=== PATIENT | male | born 1995 | race Two or more races ===

== ENCOUNTER 2020-01-26 10:03 | Emergency (ER) | payer OTHER ==
[2020-01-26 10:15] VITALS: BP 155/78; PULSE 107; TEMP 98.4; BMI 29.8
[2020-01-26] MEDS ORDERED: KETOROLAC TROMETHAMINE 30 MG/1 ML VIAL IM ONE (10:31)
[2020-01-26] MEDS ORDERED: KETOROLAC TROMETHAMINE 30 MG/1 ML VIAL ONE (10:36)
[2020-01-26] MEDS ORDERED: diazePAM 2 MG TABLET PO ONE (10:38)
[2020-01-26] MEDS ORDERED: diazePAM 2 MG TABLET ONE (10:39)
[2020-01-26 11:18] LABS: URINE APPEARANCE CLEAR; URINE BILIRUBIN NEGATIVE (NEGATIVE); URINE COLOR YELLOW; URINE GLUCOSE (UA) NEGATIVE (NEGATIVE); URINE KETONE TRACE (NEGATIVE); URINE LEUK ESTERASE NEGATIVE (NEGATIVE); URINE NITRITE NEGATIVE (NEGATIVE); URINE PROTEIN TRACE (NEGATIVE); URINE UROBILINOGEN 0.2 mg/dL (0.2-1.0)
== END 2020-01-26 11:51 | disposition home or self-care (01) ==
LOC: JER 10:03 → JERFT 10:03
PROC: 3E0233Z Introduction of Anti-inflammatory into Muscle, Percutaneous Approach (ICD-10-PCS; principal; 2020-01-26)
DX: R10.9 Unspecified abdominal pain (principal)
CPT/HCPCS: 81003; 87086; 99284-25

== ENCOUNTER 2021-07-02 22:07 | Emergency (ER) | payer OTHER ==
[2021-07-02 22:10] VITALS: BP 152/81; PULSE 110; TEMP 98; BMI 31.1
[2021-07-03] MEDS ORDERED: LIDOCAINE 5% TOPICAL PATCH TP ONE (00:13)
[2021-07-03] MEDS ORDERED: ACETAMINOPHEN 1000 MG/100 ML VIAL IVPB ONE (00:13)
[2021-07-03] MEDS ORDERED: ACETAMINOPHEN 325 MG TABLET (FP) PO ONE (00:23)
[2021-07-03] MEDS ORDERED: ACETAMINOPHEN 325 MG TABLET (FP) ONE (00:27)
[2021-07-03] MEDS ORDERED: LIDOCAINE 5% TOPICAL PATCH ONE (00:28)
[2021-07-03] MEDS ORDERED: LIDOCAINE PATCH REMOVAL MC SCH (22:00)
== END 2021-07-03 01:54 | disposition home or self-care (01) ==
LOC: JERFT 22:07
DX: M25.512 Pain in left shoulder (principal); V89.2XXA Person injured in unspecified motor-vehicle accident, traffic, initial encounter; Y92.9 Unspecified place or not applicable
CPT/HCPCS: 73030-TC-LT-FY; 99284-25

== ENCOUNTER 2022-10-08 17:52 | Emergency (ER) | payer OTHER ==
[2022-10-08 18:05] VITALS: RESP 18; TEMP 98.4; BMI 31.1
[2022-10-08] MEDS ORDERED: SODIUM CHLORIDE 1,000 ML IV STA (18:33)
[2022-10-08] MEDS ORDERED: morphine CARPU-JECT 4 MG/1 ML DISP.SYRIN IVPUSH ONE (18:33)
[2022-10-08] MEDS ORDERED: ONDANSETRON 4 MG/2 ML VIAL IVPUSH ONE (18:33)
[2022-10-08] MEDS ORDERED: morphine SULFATE 4 MG/ML VIAL ONE (18:41)
[2022-10-08] MEDS ORDERED: ONDANSETRON 4 MG/2 ML VIAL ONE (18:42)
[2022-10-08 19:11] LABS: BASO % 0.4 % (0-2.0); EOS % 0.5 % (0-4.5); HEMATOCRIT 41.1 % (35.4-49); HEMOGLOBIN 13.7 GM/dL (11.7-16.9); LYMPH % 42.3 % (8-40); MCH 27.7 pg (25.7-33.7); MCHC 33.4 g/dl (32.0-35.9); MEAN CELL VOLUME 83.1 fl (80-96); MEAN PLT VOLUME 9.5 fl (7.5-11.1); MONO % 12.2 % (3.8-10.2); NEUT % 44.6 % (42.8-82.8); PLATELET COUNT 222 10^3/uL (134-434); RBC 4.94 M/mm3 (4.00-5.60); RDW 13.8 % (11.9-15.9); WHITE BLOOD COUNT 4.1 K/mm3 (4.0-10.0)
[2022-10-08 19:35] LABS: ALBUMIN 4.2 g/dl (3.4-5.0); BLOOD UREA NITROGEN 9.1 mg/dL (7-18); CALCIUM 9.1 mg/dL (8.5-10.1)
[2022-10-08 19:39] LABS: CREATININE 1.1 mg/dL (0.55-1.3)
[2022-10-08 19:40] LABS: BILIRUBIN,TOTAL 0.2 mg/dL (0.2-1); TOT PROT 8.1 g/dl (6.4-8.2)
[2022-10-08 20:11] VITALS: BP 137/70; PULSE 81
[2022-10-08 21:23] LABS: PH,URINE 5.5 (5.0-8.0); URINE APPEARANCE CLEAR; URINE BILIRUBIN NEGATIVE (NEGATIVE); URINE COLOR YELLOW; URINE GLUCOSE (UA) NEGATIVE (NEGATIVE); URINE KETONE NEGATIVE (NEGATIVE); URINE LEUK ESTERASE NEGATIVE (NEGATIVE); URINE NITRITE NEGATIVE (NEGATIVE); URINE PROTEIN NEGATIVE (NEGATIVE); URINE UROBILINOGEN 0.2 mg/dL (0.2-1.0)
[2022-10-08] MEDS ORDERED: MAG HYDROX/AL HYDROX/SIMETH -MYLANTA- ORAL SUSPENSION PO ONE (21:28)
[2022-10-08] MEDS ORDERED: FAMOTIDINE 20 MG TABLET PO ONE (21:28)
[2022-10-08] MEDS ORDERED: MAG HYDROX/AL HYDROX/SIMETH 30 ML UNIT-DOSE CUP ONE (21:35)
[2022-10-08] MEDS ORDERED: FAMOTIDINE 20 MG TABLET ONE (21:35)
== END 2022-10-08 22:27 | disposition home or self-care (01) ==
LOC: JER 17:52
PROC: 3E033GC Introduction of Other Therapeutic Substance into Peripheral Vein, Percutaneous Approach (ICD-10-PCS; principal; 2022-10-08)
PROC: 3E033GC Introduction of Other Therapeutic Substance into Peripheral Vein, Percutaneous Approach (ICD-10-PCS; 2022-10-08)
PROC: 3E0337Z Introduction of Electrolytic and Water Balance Substance into Peripheral Vein, Percutaneous Approach (ICD-10-PCS; 2022-10-08)
DX: R10.11 Right upper quadrant pain (principal); Z20.822 Contact with and (suspected) exposure to COVID-19
CPT/HCPCS: 36415; 71046-TC-FY; 80053; 81003; 83690; 85025; 87086; 99284-25; C9803-CS; U0003; U0005